=== PATIENT | male | born 1990 | race Two or more races ===

== ENCOUNTER 2024-01-02 12:35 | Emergency (ER) | payer MEDICAID ==
[~2024-01-02] VITALS: Ht 170.2 cm; Wt 86.4 kg
[2024-01-02 12:47] VITALS: BP 148/92; PULSE 60; RESP 14; TEMP 98.6; O2SAT 98
[2024-01-02] MEDS: ERYTHROMYCIN 0.5% 3.5 GM TUBE OPHTHALMIC OINTMENT OD ONE (14:41)
[2024-01-02] MEDS: FLUORESCEIN SODIUM 1 MG STRIP OD ONE (14:41)
== END 2024-01-02 14:53 | disposition home or self-care (01) ==
LOC: EMS 12:35
DX: T15.01XA Foreign body in cornea, right eye, initial encounter (principal); W44.9XXA Unspecified foreign body entering into or through a natural orifice, initial encounter; Y93.89 Activity, other specified; Y92.89 Other specified places as the place of occurrence of the external cause; Y99.8 Other external cause status
CPT/HCPCS: 65220; 99284; Z7502; Z7610